=== PATIENT | female | born 1965 | race Caucasian/White ===

== ENCOUNTER 2024-04-13 12:53 | Observation (INO) | payer OTHER, SELFPAY ==
[2024-04-13] VITALS (10 sets, daily range): BP systolic 126–163; BP diastolic 59–94; PULSE 57–84; RESP 12–22; TEMP 36.3–37.2; O2SAT 94–99; BMI 26.2
--- NOTE | 2024-04-13 14:24 | EKG12_ITS ---
Test Reason : EYE PROBLEM Blood Pressure : / mmHG Vent. Rate : 069 BPM Atrial Rate : 069 BPM P-R Int : 208 ms QRS Dur : 082 ms QT Int : 396 ms P-R-T Axes : 022 035 044 degrees QTc Int : 424 ms Normal sinus rhythm Septal infarct (cited on or before 04-DEC-2014) Abnormal ECG Confirmed by FLASH RAMEY, DOROTHEA ([id number]), health editor CHASTITY POSADAS ([id number]) on 04/14/2024 9:56:56 AM Referred By: Confirmed By:DOROTHEA VIDALES MD
--- NOTE | 2024-04-13 14:24 | CT_ITS ---
STUDY: CTA HEAD AND NECK WITH CONTRAST REASON FOR EXAM: Female, 58 years old. Neuro deficit, acute, (R hemianopsia) RADIATION DOSAGE (If Supplied By Facility): CTDIvol = ( 28.00 ) mGy, DLP = ( 1407.82 ) mGycm TECHNIQUE: CT angiography was performed with a multi-detector CT scanner. Data acquisition was obtained from the skull base through the vertex following intravenous administration of IV 100mL Isovue-370. MIP images were reconstructed from the axial data set. Post-processing of the angiographic images was performed, with multiplanar reformation and 3D reconstruction. Individualized dose optimization techniques were used for this CT. COMPARISON: No relevant priors. FINDINGS: Normal bilateral petrous carotid arteries. Normal right cavernous carotid artery with a normal supraclinoid bifurcation. Normal left cavernous carotid artery with a normal supraclinoid bifurcation. Normal right A1 segments of the anterior cerebral artery. Normal left A1 segments of the anterior cerebral artery. Normal intact anterior communicating artery (ACOM). Normal bilateral A2 segments of the anterior cerebral arteries. Normal right M1 and M2 segments of the middle cerebral arteries, with a normal M1 bifurcation. Normal left M1 and M2 segments of the middle cerebral arteries, with a normal M1 bifurcation. Normal right posterior communicating artery (PCOM). Normal left posterior communicating artery (PCOM). Normal bilateral vertebral arteries. Normal basilar artery with a normal basilar bifurcation. The visualized bilateral superior cerebellar (SCA) arteries are normal. Normal bilateral P1, P2 and visualized P3 segments of the posterior cerebral arteries. There is no demonstrated aneurysm of the [place] of [place]. There is evidence of decreased attenuation in the medial aspect of the left occipital lobe a 2.4 subacute infarction. Minimal degree of surrounding edema and mass effect. Findings suggestive of old encephalomalacia in the posterior left parietal lobe. AORTIC ARCH: There is atherosclerotic calcific plaque formation of the aortic arch and great vessels arising from the aortic arch, without a hemodynamically significant stenosis. There is a normal origin of the brachiocephalic, left common carotid, and left subclavian arteries. Atherosclerotic plaque formation at the origin of the left subclavian artery. RIGHT CAROTID ARTERIES: Normal right common carotid artery (CCA). Normal right common carotid bulb. There is mild atherosclerotic plaque formation of the origin of the right internal carotid artery with less than 50% cross sectional diameter stenosis. Normal visualized cervical portion of the right internal carotid artery. Normal origin of the right external carotid artery (ECA). LEFT CAROTID ARTERIES: Normal left common carotid artery (CCA). Normal left common carotid bulb. There is mild atherosclerotic plaque formation of the origin of the left internal carotid artery with less than 50% cross sectional diameter stenosis. Normal visualized cervical portion of the left internal carotid artery. Normal origin of the left external carotid artery (ECA). VERTEBRAL ARTERIES: Normal bilateral vertebral arteries. CT/CTA Head AND Neck W/ Contrast IMPRESSION: Subacute infarction involving the medial left occipital lobe. Minimal plaque formation at the origin of the right and left internal carotid arteries. Electronically Signed: Mik Ayers MD at 15:29 EDT ,
[2024-04-13 14:38] LABS: Absolute Lymphocyte Count 2.82 X10^3/uL (0.83-4.51); Absolute Neutrophil Count 3.9 X10^3/uL (2.0-7.7); Basophil# 0.05 X10^3/uL; Basophil% 0.7 % (0-1); Eosinophil# 0.13 X10^3/uL; Eosinophils% 1.8 % (0-5); Hematocrit 44.8 % (37-47); Lymphocyte # 2.82 X10^3/ul (0.83-4.51); Lymphocyte % 39.4 % (19-41); Mean Corp Hgb Conc 33.5 g/dL (32-36); Mean Corpuscular Hgb 32.1 pg (27.0-32.0); Mean Corpuscular Volume 95.7 fL (81-99); Mean Platelet Vol. 9.9 fl (6.2-12.0); Monocyte# 0.26 X10^3/uL; Monocyte% 3.6 % (0-10); NRBC Flagged by Analyzer 0 % (0-5); Neutrophil # 3.89 X10^3/uL (2.7-7.7); Neutrophil % 54.4 % (47-70); Platelet Count 332 K/mm3 (150-450); RBC Distribution Width CV 13.2 % (11.6-14.6); RBC Distribution Width SD 46.9 fl (35.1-43.9); Red Blood Count 4.68 M/mm3 (4.2-5.4); White Blood Count 7.2 K/mm3 (4.4-11.0)
[2024-04-13 14:45] LABS: Partial Thromboplast Time 24.7 Seconds (24.1-36.2); Prothrombin Time (Protime)PT. 13.6 SECONDS (11.7-14.9)
--- NOTE | 2024-04-13 14:55 | EX.ED.DYSGE1 ---
HPI History of Present Illness Chief Complaint: Vision Prob Informant: patient and family Narrative Narrative: 58-year-old female presenting to the emergency room with a chief complaint of vision change. Patient states that yesterday morning at around 1030 she took a nap woke around 11 and noticed that something was different with her right eye vision. She went back to sleep thinking that when she woke it would be fine. It was not. She states that she cannot see her hand out of the side of her right eye. She reportedly went to [facility] last night had a CT of the head that was negative and was advised to follow-up with ophthalmology. She went saw Dr. Estes today who feels that she has a right hemianopsia. The patient states that she takes [id number] Garlique for her cholesterol. She denies any history of sleep apnea or atrial fibrillation. No prior strokes. She denies any arm or leg symptoms. Family states it seems like she is walking a bit abnormal compared to normal. She denies any speech changes. [facility] Medical History (Updated 04/13/24 @ 16:10 by Stefanie Randall) Heart murmur Home Medications ?Medication ?Instructions ?Recorded ?Last Taken ?Type Probiotic 04/13/24 Unknown History garlic ordorless 04/13/24 Unknown History ginkgo biloba 1XD 04/13/24 Unknown History Allergy/AdvReac Type Severity Reaction Status Date / Time COLD MEDICINE THAT STARTS Allergy Rash Uncoded 12/04/14 13:06 WITH A B Social History Smoking Status: Current every day smoker tobacco type: cigarettes ROS ROS ED Constitutional Constitutional ED: Denies chills, fever(s) or weight loss Eyes Eyes: Reports blurry vision, change in vision and other Details: See history of present illness ; Denies diplopia ENT ENT ED: Denies ear pain, rhinorrhea or sore throat Cardiovascular Cardiovascular: Denies chest pain, orthopnea, palpitations or racing heartbeat Respiratory/Chest Respiratory/Chest: Denies cough, dyspnea or orthopnea Gastrointestinal Gastrointestinal: Denies abdominal pain, diarrhea, nausea or vomiting Genitourinary Genitourinary ED: Denies dysuria, hematuria or urinary frequency Musculoskeletal Musculoskeletal: Denies arthralgias or myalgias Integumentary Denies abscess or rash Neurologic Neurologic: Denies headache(s) or weakness Psychiatric Psychiatric: Denies anxiety, depression, suicidal ideation or suicidal thoughts Endocrine Endocrinology: Denies polydipsia, polyphagia or polyuria Allergic/Immunologic Allergic/Immunologic ED: Denies mouth swelling, tongue swelling or urticaria EXAM Physical Exam Const Vital Signs: 04/13/24 12:56 04/13/24 14:08 04/13/24 14:24 Temperature 97.8 F Temperature Source Temporal Pulse Rate 84 77 63 Respiratory Rate 18 19 H 12 Blood Pressure 131/81 H 126/94 H 157/88 H Blood Pressure Mean 97 104 111 Pulse Ox 97 94 95 Oxygen Delivery Method Room Air Room Air Room Air 04/13/24 14:54 Temperature Temperature Source Pulse Rate 61 Respiratory Rate 14 Blood Pressure 127/83 H Blood Pressure Mean 97 Pulse Ox 94 Oxygen Delivery Method Positive well nourished and well developed General Appearance ED: well developed HEENT Reports normocephalic, head/scalp atraumatic and moist mucous membranes Eyes PERRL and EOMs intact bilaterally Neck no lymphadenopathy, supple and no JVD Resp normal respiratory effort and clear to auscultation bilaterally Cardio regular rate, regular rhythm and no murmurs GI normal to inspection, nondistended, normoactive bowel sounds and non-tender Palpation: soft Back/Spine no CVA tenderness and normal ROM Extremity normal to inspection General Extremety ED: Negative for edema General Extremity: Negative for edema Neuro oriented x3 and CN's II-XII intact bilaterally Sensorium / Orientation: alert Motor Exam: strength 5/5 throughout Psych mental status grossly normal Mood & Affect: Negative for depressed or tearful Skin no rashes or lesions noted and no wounds MDM MDM MDM Narrative Medical decision making narrative: Differential diagnosis includes but not limited to stroke intracranial hemorrhage cardiac dysrhythmia CTA of the head and neck was obtained. This demonstrates recent temporal ischemic event. Basic blood work was obtained her EKG is in normal sinus rhythm with a rate of 69. Spoke with the hospitalist regarding potential for admission. When to bring her in under observational status. History & Record Review Discussion w/independent historian: Patient and Family Lab Data Attestation: I reviewed the patient's lab results. Labs: Laboratory Results - last 24 hr 04/13/24 04/13/24 13:20 14:51 WBC 7.2 RBC 4.68 Hgb 15.0 Hct 44.8 MCV 95.7 MCH 32.1 H MCHC 33.5 RDW Std Deviation 46.9 H RDW Coeff of Xavier 13.2 Plt Count 332 MPV 9.9 Immature Gran % (Auto) 0.100 Neut % (Auto) 54.4 Lymph % (Auto) 39.4 [place] % (Auto) 3.6 Eos % (Auto) 1.8 Baso % (Auto) 0.7 Absolute Neuts (auto) 3.9 Absolute Lymphs (auto) 2.82 Nucleated RBC % 0 PT 13.6 INR 1.0 APTT 24.7 Sodium 138 Potassium 3.7 Chloride 110 H Carbon Dioxide 22.0 Anion Gap 7 BUN 14 Creatinine 0.99 Estim Creat Clear Calc 57.66 Est GFR (MDRD) Af Amer 74 Est GFR (MDRD) Non-Af 62 BUN/Creatinine Ratio 14.2 Glucose 186 H Calcium 9.3 Troponin I High Sens 3 POC Glucose 120 H Radiography Diagnostic Testing: Clinical Impression(s) from Imaging Studies Head/Neck CTA 04/13/24 14:24 IMPRESSION: Subacute infarction involving the medial left occipital lobe. Minimal plaque formation at the origin of the right and left internal carotid arteries. Electronically Signed: Mik Ayers MD at 15:29 EDT , Chest X-Ray 04/13/24 15:05 IMPRESSION: Normal x-ray examination of the chest. Electronically Signed: Mik Ayers MD at 15:23 EDT , EKG Initial EKG: Attestation: I personally reviewed and interpreted this EKG as follows: Comments: Normal sinus rhythm ventricular rate of 69 bpm Discharge Plan Dx/Rx/DC Orders Clinical Impression: Stroke, Right homonymous hemianopsia due to recent cerebral infarction Disposition Disposition: Acute Care Hospital [facility] NIHSS NIHSS 1a. Level of Consciousness: Alert; keenly responsive 1b. LOC Questions: Answers BOTH questions correctly. 1c. LOC Commands: Performs both tasks correctly. 2. Best Gaze: Normal 3. Visual: Complete hemianopia 4. Facial Palsy: Normal symmetrical movements 5a. Left Arm: No drift; arm holds 90 (or 45) degrees for full 10 seconds 5b. Right Arm: No drift; arm holds 90 (or 45) degrees for full 10 seconds 6a. Left Leg: No drift; leg holds 30-degree position for full 5 seconds 6b. Right Leg: No drift; leg holds 30-degree position for full 5 seconds 7. Limb Ataxia: Absent 8. Sensory: Normal; no sensory loss 9. Best Language: No aphasia; normal 10. Dysarthria: Normal 11. Extinction and Inattention: No abnormality Total: 2
[2024-04-13 15:05] LABS: Anion Gap 7 (5-15); BUN 14 mg/dL (7-18); BUN/Creat Ratio 14.2 RATIO (10-20); Calcium,Total 9.3 mg/dL (8.5-10.1); Chloride 110 mmol/L (98-107); Creatinine, Serum 0.99 mg/dL (0.55-1.02); EST Glomerular Filtration Rate 62 mL/min (>60); Est Glom Filt Rate - Afr Amer 74 mL/min (>60); Estimated Creatinine Clearance 57.66 ml/min; Glucose 186 mg/dL (74-106); Potassium 3.7 mmol/L (3.5-5.1); Sodium Level 138 mmol/L (136-145); Troponin-I HS 3 pg/mL (3.0-54.0)
--- NOTE | 2024-04-13 15:05 | RAD_ITS ---
STUDY: X-RAY CHEST REASON FOR EXAM: Female, 58 years old. Neuro deficit, acute, stroke suspected TECHNIQUE: Single AP portable view of the chest. COMPARISON: None. FINDINGS: EKG electrodes are seen. The lungs are clear and expanded. There is no demonstrated pleural abnormality. Normal size heart. Normal mediastinum and trina. Normal visualized pulmonary arteries. Normal visualized aortic arch and descending thoracic aorta. Normal visualized thoracic spine. Normal visualized ribs, clavicles, and shoulders. There is no demonstrated abnormality of the visualized soft tissue structures of the upper abdomen. RAD/Chest 1 View IMPRESSION: Normal x-ray examination of the chest. Electronically Signed: Mik Ayers MD at 15:23 EDT ,
[2024-04-13 15:15] LABS: Bedside Glucose 120 mg/dL (74-106)
--- NOTE | 2024-04-13 16:34 | HP.PCM.HOS_ITS ---
HPI - General General Date of Admission: 04/13/24 Date of Service: 04/13/24 Chief Complaint: CVA HPI Narrative GRAYSON HAYES, is a 58 F with history of tobacco use presented to [facility] ED with right sided hemianopsia since 04/12 at 11 AM. Patient found to have CVA on CT, hospitalist contacted for admission and CVA workup. Patient evaluated at bedside, yesterday morning around 1030 she took a nap and woke up at 11 and noticed something was different with the vision in her right eye, went back to sleep thinking that when she woke up it would be fine but deficits persisted so she went to [facility] last night had CT of the head which was negative and it was advised that she follow-up with ophthalmology. Saw Dr. Estes with Optho today and was told she had right hemianopsia and was sent to the ED. She reports other than not being able to see out of the lateral part of her right eye and has had a headache but she has no numbness, weakness, tingling, no other deficits or complaints. [facility] Medical History Asthma Heart murmur Smoker Home Medications ?Medication ?Instructions ?Recorded ?Last Taken ?Type Probiotic 04/13/24 Unknown History garlic ordorless 04/13/24 Unknown History ginkgo biloba 1XD 04/13/24 Unknown History Allergy/AdvReac Type Severity Reaction Status Date / Time COLD MEDICINE THAT STARTS Allergy Rash Uncoded 12/04/14 13:06 WITH A B Surgical History (Updated 04/13/24 @ 16:12 by Stefanie Randall) History of appendectomy Social History Smoking Status: Current every day smoker tobacco type: cigarettes ROS ROS Narrative General: Denies fever/chills HENT: Slight headache, denies stuffy nose, denies sore throat EYES: Cannot see out of the lateral part of right eye Resp: Denies cough, denies shortness of breath Cardiac: Denies chest pain GI: Denies abdominal pain, denies changes in bowel, denies nausea/vomiting : Denies changes in urination Extremity: Denies swelling MSK: Denies weakness Neuro: Denies any numbness/tingling Heme: Denies any bleeding or bruising Skin: Denies rashes Psychiatric: No complaints voiced Vital Signs Vital Signs Vital Signs: 04/13/24 12:56 04/13/24 14:08 04/13/24 14:24 Temperature 97.8 F Temperature Source Temporal Pulse Rate 84 77 63 Respiratory Rate 18 19 H 12 Blood Pressure 131/81 H 126/94 H 157/88 H Blood Pressure Mean 97 104 111 Pulse Ox 97 94 95 Oxygen Delivery Method Room Air Room Air Room Air 04/13/24 14:54 04/13/24 16:00 04/13/24 16:32 Temperature 97.3 F L Temperature Source Pulse Rate 61 60 57 L Respiratory Rate 14 15 22 H Blood Pressure 127/83 H 129/91 H 129/91 H Blood Pressure Mean 97 103 103 Pulse Ox 94 99 99 Oxygen Delivery Method Weight Weight: 67.041 kg Body Mass Index (BMI) 26.2 Physical Exam Narrative General: Alert, oriented, no apparent distress HEENT: Atraumatic, normocephalic Eyes: Anicteric, normal conjunctiva, extraocular movements intact, patient with nystagmus on far lateral gaze bilaterally, has decreased vision on lateral side of right eye Neck: Supple Respiratory: Clear to auscultation bilaterally, normal respiratory effort Cardiovascular: Regular rate and rhythm GI: Soft, nontender, nondistended Extremities: No edema Musculoskeletal: Strength 5 out of 5 in right upper extremity, 5 out of 5 left upper extremity, 5- out of 5 right lower extremity, 5 out of 5 left lower extremity Neuro: Aside from vision deficits no overt focal neurological deficits, cranial nerves II through XII intact, [id number] without significant difficulty bilaterally Skin: No rashes appreciated Psych: Cooperative Results Lab / Micro Data 04/13/24 13:20 04/13/24 13:20 Labs: Laboratory Results - last 24 hr 04/13/24 13:20: WBC 7.2, RBC 4.68, Hgb 15.0, Hct 44.8, MCV 95.7, MCH 32.1 H, MCHC 33.5, RDW Std Deviation 46.9 H, RDW Coeff of Xavier 13.2, Plt Count 332, MPV 9.9, Immature Gran % (Auto) 0.100, Neut % (Auto) 54.4, Lymph % (Auto) 39.4, [place] % (Auto) 3.6, Eos % (Auto) 1.8, Baso % (Auto) 0.7, Absolute Neuts (auto) 3.9, Absolute Lymphs (auto) 2.82, Nucleated RBC % 0, PT 13.6, INR 1.0, APTT 24.7, Sodium 138, Potassium 3.7, Chloride 110 H, Carbon Dioxide 22.0, Anion Gap 7, BUN 14, Creatinine 0.99, Estim Creat Clear Calc 57.66, Est GFR (MDRD) Af Amer 74, Est GFR (MDRD) Non-Af 62, BUN/Creatinine Ratio 14.2, Glucose 186 H, Calcium 9.3, Troponin I High Sens 3 04/13/24 14:51: POC Glucose 120 H Imaging Radiology Impression Head/Neck CTA 04/13/24 14:24 IMPRESSION: Subacute infarction involving the medial left occipital lobe. Minimal plaque formation at the origin of the right and left internal carotid arteries. Electronically Signed: Mik Ayers MD at 15:29 EDT , Chest X-Ray 04/13/24 15:05 IMPRESSION: Normal x-ray examination of the chest. Electronically Signed: Mik Ayers MD at 15:23 EDT , Assessment & Plan Assessment/Plan (1) CVA (cerebral vascular accident): PLAN: Plan # Right sided hemianopsia -Admit to tele -EKG NSR -CT head w/ subacute infarct involving the medial left occipital lobe with minimal plaque formation and origin of right and left internal carotid arteries -MRI ordered -NIH q4hr -asa, statin -Echo w/ bubble study -PT/OT/Speech eval -Teleneuro consult ordered #Tobacco use -Advise cessation -Nicotine replacement available if desired #DVT ppx: Lovenox subcu Ashly Richards MD Charges/Coding Visit Charges Inpatient E&M: 35161 Init Hosp L1
--- NOTE | 2024-04-13 16:42 | ECHOD_ITS ---
Reason For Study: TIA/CVA Procedure This was a 2D Doppler, Color Flow transthoracic echocardiogram. Exam performed portable in patient room. Left Ventricle Normal LV size. The estimated ejection fraction is 65-70 %. No evidence for diastolic dysfunction. No regional wall motion abnormalities noted. Right Ventricle Normal RV size. Normal systolic function. Atria Normal left atrium. Normal right atrium. Bubble contrast study is positive for PFO. Mitral Valve Mild diffuse mitral valve calcification. Tricuspid Valve Normal tricuspid valve. Trivial tricuspid valve insufficiency. Unable to estimate RV systolic pressure due to insufficient tricuspid regurgitant envelope. Aortic Valve Trisinus/trileaflet aortic valve. Mild aortic stenosis. Peak aortic valve gradient 19 mmHg. Mean aortic valve gradient 9 mmHg. Pulmonic Valve Normal pulmonic valve. Great Vessels Normal aortic root. Pericardium/Pleural No pericardial effusion. Medication Performed a rapid injection of agitated mix of 9 cc saline and 1cc air to assess for atrial septal defect. MMode/2D Measurements & Calculations LVIDd: 3.9 cm IVSd: 1.0 cm Ao root diam: 2.9 cm LVIDs: 2.6 cm LVPWd: 1.0 cm FS: 33.7 % LAV(MOD-bp): 38.3 ml LVAd ap4: 23.7 cm2 LVAd ap2: 22.5 cm2 LAV(MOD-bp) Indexed: 22.6 ml/m2 LVLd ap4: 7.9 cm LVLd ap2: 8.3 cm LAV(MOD-sp2): 37.2 ml EDV(MOD-sp4): 57.8 ml EDV(MOD-sp2): 52.6 ml LAV(MOD-sp4): 39.2 ml EDV(sp4-el): 60.3 ml EDV(sp2-el): 51.5 ml LVAs ap4: 11.2 cm2 LVAs ap2: 11.2 cm2 LVLs ap4: 6.6 cm LVLs ap2: 6.5 cm ESV(MOD-sp4): 16.5 ml ESV(MOD-sp2): 17.2 ml ESV(sp4-el): 16.1 ml ESV(sp2-el): 16.3 ml EF(MOD-sp4): 71.5 % EF(MOD-sp2): 67.2 % EF(sp4-el): 73.3 % SV(MOD-sp4): 41.3 ml SV(MOD-sp2): 35.3 ml SV(sp4-el): 44.2 ml LA A4 area: 15.0 cm2 LA dimension(2D): 2.7 cm RA A4 area: 11.5 cm2 TAPSE: 2.3 cm Time Measurements MV dec time: 0.23 sec Doppler Measurements & Calculations MV E max chapin: 91.0 cm/sec Lat Peak E' Chapin: 11.7 cm/sec Med Peak E' Chapin: 7.6 cm/sec MV A max chapin: 109.1 cm/sec E/E' lat: 7.8 E/E' med: 11.9 MV E/A: 0.83 MV V2 max: 106.6 cm/sec MV P1/2t max chapin: 99.6 cm/sec Ao V2 max: 215.4 cm/sec MV max P.5 mmHg MV P1/2t: 65.5 msec Ao max P.6 mmHg MV V2 mean: 59.2 cm/sec Ao V2 mean: 137.2 cm/sec MV mean P.6 mmHg MV dec slope: 445.2 cm/sec2 Ao mean P.7 mmHg MV V2 VTI: 34.8 cm MVA(P1/2t): 3.4 cm2 Ao V2 VTI: 39.9 cm AV (velocity ratio): 0.59 LV V1 max: 114.0 cm/sec PA V2 max: 177.2 cm/sec LV V1 max P.2 mmHg PA V2 mean: 116.0 cm/sec LV V1 mean P.9 mmHg LV V1 mean: 79.8 cm/sec LV V1 VTI: 23.4 cm ECHO/Echo Complete Interpretation Summary The estimated ejection fraction is 65-70 %. Mild diffuse mitral valve calcification. Mild aortic stenosis. Bubble contrast study is positive for PFO. Ordering Physician: Ashly Richards Referring Physician: JOHAN PCP Performed By: Genoveva Nice, DUDLEY, RVT
--- NOTE | 2024-04-13 16:42 | MRI_ITS ---
STUDY: MRI BRAIN WITHOUT CONTRAST REASON FOR EXAM: Female, 58 years old. CVA, RT EYE VISUAL CHANGES TECHNIQUE: Standardized multiplanar fat and water weighted pulse sequences were obtained. MRI examination brain fusion protocol including multiplanar multiecho noncontrast imaging. Contrast: No contrast administered COMPARISON: CT/CTA examination of 04/13/2024 HEMISPHERES, CEREBELLUM AND BRAINSTEM: 1. The cerebral parenchyma, ventricular system and gyral pattern abnormal configuration. There however is significant edema involving the medial ankle of the LEFT occipital lobe which appears to include both the superior and inferior vena cava calcarine sulcus including the cutaneous and lingula. No evidence of petechial transformation, however significant fluid restriction and matched ADC abnormality consistent with acute infarct. Additional small focal area of ischemic change in the posterior thalamus on the LEFT. 2. Remaining hemispheric parenchyma has normal configuration, and normal ruth-white differentiation. No significant white matter changes noted. 3. The cerebellum, brainstem, basilar and suprasellar cisterns have normal appearance. No Chiari malformation. PITUITARY: Infundibulum and pituitary have normal configuration. Midline structures appear normal. CSF SPACES: Appropriate for age. No hydrocephalus. Basal cisterns are patent. VESSELS: 1. There are normal flow voids noted in the great vessels at the skull base ORBITS AND PARANASAL SINUSES: 1. Both globes, extraocular muscles, optic nerves and retrobulbar fat appear unremarkable. 2. Paranasal sinuses are clear. BONY ELEMENTS: Bony elements of the cranial vault, facial skeleton and skull base have normal appearance. SCALP AND SOFT TISSUES: Normal appearance of the soft tissues of the scalp and the visualized face OTHER: None MRI/Brain without Contrast IMPRESSION: 1. Acute LEFT HANGER infarct with edema and fluid restriction involving the medial aspect of the LEFT occipital lobe including both the superior and inferior vena cava calcarine sulcus. Findings may contribute to a right-sided homonymous hemianopsia. Additional focal area of acute infarct in the posterior LEFT thalamus. 2. No evidence of petechial transformation or hemorrhage. 3. Remaining hemispheric parenchyma, thalamus, brainstem and cerebellum have normal appearance. Electronically Signed: Percy Perez MD at 18:40 EDT ,
[2024-04-13] MEDS: Atorvastatin Calcium 80 MG Tablet PO (22:14)
[2024-04-13] MEDS: Acetaminophen 325 MG Tablet 650 MG PO (22:14)
[2024-04-13] MEDS: Morphine 2 MG/ML Syringe IV (23:06)
[2024-04-14 00:28] VITALS: BMI 26.2
[2024-04-14 02:00] VITALS: BP 109/74; PULSE 76; RESP 16; TEMP 36.6; O2SAT 92
[2024-04-14 06:00] VITALS: BP 125/68; PULSE 67; RESP 16; TEMP 36.8; O2SAT 91
[2024-04-14 06:29] LABS: Absolute Lymphocyte Count 3.84 X10^3/uL (0.83-4.51); Absolute Neutrophil Count 6.2 X10^3/uL (2.0-7.7); Basophil# 0.07 X10^3/uL; Basophil% 0.6 % (0-1); Eosinophil# 0.26 X10^3/uL; Eosinophils% 2.4 % (0-5); Hematocrit 43.6 % (37-47); Hemoglobin 14.7 g/dL (12.0-15.0); Lymphocyte # 3.84 X10^3/ul (0.83-4.51); Mean Corp Hgb Conc 33.7 g/dL (32-36); Mean Corpuscular Hgb 32.4 pg (27.0-32.0); Mean Platelet Vol. 9.5 fl (6.2-12.0); Monocyte% 5.5 % (0-10); NRBC Flagged by Analyzer 0 % (0-5); Neutrophil # 6.19 X10^3/uL (2.7-7.7); Neutrophil % 56.3 % (47-70); Platelet Count 306 K/mm3 (150-450); RBC Distribution Width CV 13.2 % (11.6-14.6); RBC Distribution Width SD 46.8 fl (35.1-43.9); Red Blood Count 4.54 M/mm3 (4.2-5.4)
[2024-04-14] MEDS: Acetaminophen 325 MG Tablet 650 MG PO (06:34)
[2024-04-14 06:58] LABS: Anion Gap 6 (5-15); BUN 16 mg/dL (7-18); BUN/Creat Ratio 19.6 RATIO (10-20); Calcium,Total 8.6 mg/dL (8.5-10.1); Chloride 110 mmol/L (98-107); Cholesterol 275 mg/dL (200); Creatinine, Serum 0.82 mg/dL (0.55-1.02); EST Glomerular Filtration Rate 77 mL/min (>60); Est Glom Filt Rate - Afr Amer 93 mL/min (>60); Estimated Creatinine Clearance 69.59 ml/min; Glucose 102 mg/dL (74-106); High Density Lipoprotein 40 mg/dL; Potassium 4.1 mmol/L (3.5-5.1); Sodium Level 138 mmol/L (136-145); Triglycerides 171 mg/dL; Very Low Density Lipoprotein 34 mg/dL (5-40)
[2024-04-14 08:55] VITALS: O2SAT 95
[2024-04-14 09:01] LABS: Hemoglobin A1c 5.7 % (3.8-5.6)
[2024-04-14 09:15] VITALS: BP 123/73; PULSE 65; RESP 18; TEMP 37; O2SAT 94
[2024-04-14] MEDS: Aspirin 81 MG TAB.CHEW PO (09:16)
[2024-04-14] MEDS: Enoxaparin 40 MG/0.4 ML Syringe SC (09:16)
[2024-04-14] MEDS: Clopidogrel Bisulfate 75 MG Tablet PO (09:17)
[2024-04-14 13:15] VITALS: BP 119/56; PULSE 67; RESP 18; TEMP 36.9; O2SAT 96
--- NOTE | 2024-04-14 13:16 | CASEMGMT ---
Social Work PHQ9 depression screen completed on this date as pt diagnosed with stroke. Pt score of 6 indicating mild depression. During discussion pt denies overall feeling depressed and does not take medications or see a counselor. SW educated pt to relation between stroke and depression and provided pt with list of area counselors and encouraged pt to talk to PCP if feelings worsened. Pt accepting of list and denies need for appointment at this time. ARRON Orosco
--- NOTE | 2024-04-14 14:52 | STROKE.CONS ---
Assessment and Plan: Stroke Assessment/Plan GRAYSON HAYES is a 58 F with a history of HLD who presents for evaluation of R vision loss. Was at ophtalmology and they told her to come in. CTH confirmed Left Ociipitoparietal infarct. Neurological examination shows NIH 2, ataxia and mild visual field cut. Neuroimaging shows L GREENS CUTTER infarct. Etiology Cryptogenic. - Anti-platelet medication: Plavix 75 mg daily. - Occupational/ Physical therapy consults - DVT prophylaxis with SCDs and heparin SQ - Vascular risk factor modification. The following are the recommended guidelines: LDL Goal < 70 Smoking Cessation A1C 5.7 LDL 200 - would start Lipitor 80 mg Follow up TTE results. If wnl - then would consider Event monitor on discharge with eventful loop recorder for cryptogenic stroke. -- Would stop Supplements such as Garlic and Ginkgo ferry terminal agent blood pressure control should achieve <130/80 mmHg. 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 Weight Management: Goal for BMI is 18.5 -24.9 kg/m2 Alcohol: No more than 2 drinks/day for men or 1 drink/day for non- women - Promote lifestyle modification: weight control, physical activity, moderation of alcohol intake, moderate sodium intake. Followup with PCP in 1-2 weeks, and in Neurology clinic in 6-12 weeks HPI Consult Data Date of Consult: 04/14/24 HPI Narrative HPI Narrative: GRAYSON HAYES, is a 58 F who presents with vision vhanges. [facility] Medical History (Updated 04/13/24 @ 16:[address] Ashly Richards MD) Smoker Asthma Heart murmur Home Medications ?Medication ?Instructions ?Recorded ?Last Taken ?Type Probiotic 04/13/24 04/12/24 History garlic ordorless 04/13/24 04/12/24 History ginkgo biloba 1XD 04/13/24 04/12/24 History Allergy/AdvReac Type Severity Reaction Status Date / Time COLD MEDICINE THAT STARTS Allergy Rash Uncoded 12/04/14 13:06 WITH A B Surgical History (Updated 04/13/24 @ 16:12 by Stefanie Randall) History of appendectomy Social History Smoking Status: Current every day smoker tobacco type: cigarettes Vital Signs Vital Signs Vital Signs: 04/13/24 14:54 04/13/24 16:00 04/13/24 16:32 Temperature 97.3 F L Temperature Source Pulse Rate 61 60 57 L Pulse Strength Respiratory Rate 14 15 22 H Respiratory Effort Blood Pressure 127/83 H 129/91 H 129/91 H Blood Pressure Mean 97 103 103 Blood Pressure Source Blood Pressure Position Blood Pressure Location Pulse Ox 94 99 99 Oxygen Delivery Method 04/13/24 17:39 04/13/24 19:50 04/13/24 21:15 Temperature 99.0 F Temperature Source Oral Pulse Rate 65 Pulse Strength Respiratory Rate 16 16 Respiratory Effort Normal Blood Pressure 126/81 H Blood Pressure Mean 96 Blood Pressure Source Monitor Blood Pressure Position Sitting Blood Pressure Location Left Arm Pulse Ox 99 97 94 Oxygen Delivery Method Room Air Room Air Room Air 04/13/24 22:00 04/13/24 22:00 04/14/24 02:00 Temperature 97.8 F 97.8 F Temperature Source Oral Oral Pulse Rate 68 76 Pulse Strength Normal (2+) Respiratory Rate 16 16 Respiratory Effort Blood Pressure 163/59 H 109/74 Blood Pressure Mean 93 85 Blood Pressure Source Monitor Monitor Blood Pressure Position Supine Supine Blood Pressure Location Left Arm Left Arm Pulse Ox 97 92 Oxygen Delivery Method Room Air Room Air 04/14/24 06:00 04/14/24 08:21 04/14/24 08:55 Temperature 98.3 F Temperature Source Oral Pulse Rate 67 Pulse Strength Respiratory Rate 16 Respiratory Effort Blood Pressure 125/68 H Blood Pressure Mean 87 Blood Pressure Source Monitor Blood Pressure Position Semi-Fowlers Blood Pressure Location Left Arm Pulse Ox 91 95 Oxygen Delivery Method Room Air Room Air Room Air 04/14/24 09:15 04/14/24 13:15 Temperature 98.6 F 98.5 F Temperature Source Oral Oral Pulse Rate 65 67 Pulse Strength Respiratory Rate 18 18 Respiratory Effort Blood Pressure 123/73 H 119/56 L Blood Pressure Mean 89 77 Blood Pressure Source Monitor Monitor Blood Pressure Position Semi-Fowlers Sitting Blood Pressure Location Left Arm Left Arm Pulse Ox 94 96 Oxygen Delivery Method Room Air Room Air Weight Weight: 67 kg Body Mass Index (BMI) 26.2 EEG Results Procedure Details EEG Procedure Details: GRAYSON HAYES is a 58 year old F with a past medical history of , who presents for evaluation of Electroencephalogram on DATE at TIME NIHSS NIHSS Nursing Documentation NIHSS Nursing Documentation: NIHSS: Ischemic Stroke/TIA Start: 04/13/24 17:00 Text: For PCU Patients: NIH and Neuro Check every 4 Status: Active hours, PRN and with change in RN caregiver. Freq: [id number] Protocol: Activity Type Activity Date Activity User E-sign Co-sign Detail Recorded Client Recorded Date Recorded By Document 04/14/24 13:15 AMG [id number] 04/14/24 14:22 AMG 04/14/24 13:15 NIH Stroke Scale [NIHSS] A score of 0 is normal or asymptomatic . Total possible score is 42. Inpatient: RN or Physician to activate a stroke alert for onset of new stroke symptoms or with NIHSS increase >/= 3 points. Following change in neurological status, NIHSS will be performed per physician order or more frequently PRN. -1a. Level of Consciousness Alert; keenly responsive -1b. LOC Questions Answers BOTH questions correctly. -1c. LOC Commands Performs both tasks correctly . -2. Best Gaze Normal -3. Visual Partial hemianopia -4. Facial Palsy Normal symmetrical movements -5a. Left Arm No drift; arm holds 90 (or 45 ) degrees for full 10 seconds -5b. Right Arm No drift; arm holds 90 (or 45 ) degrees for full 10 seconds -6a. Left Leg No drift; leg holds 30-degree position for full 5 seconds -6b. Right Leg No drift; leg holds 30-degree position for full 5 seconds -7. Limb Ataxia Absent -8. Sensory Mild-to- moderate sensory loss; -9. Best Language No aphasia; normal -10. Dysarthria Normal -11. Extinction and Inattention No abnormality -Total 2 Query Text:A score of 0 is normal or asymptomatic. Total possible score is 42 . ED: Notify Physician for NIHSS increase by > / = 3 points. Inpatient: RN or Physician to activate a stroke alert for NIHSS increase of > / = 3 points. Lab / Micro Data 04/14/24 05:56 04/14/24 05:56 Labs: Laboratory Results - last 24 hr 04/13/24 13:20: Sodium 138, Potassium 3.7, Chloride 110 H, Carbon Dioxide 22.0, Anion Gap 7, BUN 14, Creatinine 0.99, Estim Creat Clear Calc 57.66, Est GFR (MDRD) Af Amer 74, Est GFR (MDRD) Non-Af 62, BUN/Creatinine Ratio 14.2, Glucose 186 H, Calcium 9.3, Troponin I High Sens 3 04/13/24 14:51: POC Glucose 120 H 04/14/24 05:56: WBC 11.0, RBC 4.54, Hgb 14.7, Hct 43.6, MCV 96.0, MCH 32.4 H, MCHC 33.7, RDW Std Deviation 46.8 H, RDW Coeff of Xavier 13.2, Plt Count 306, MPV 9.5, Immature Gran % (Auto) 0.200, Neut % (Auto) 56.3, Lymph % (Auto) 35.0, Vance % (Auto) 5.5, Eos % (Auto) 2.4, Baso % (Auto) 0.6, Absolute Neuts (auto) 6.2, Absolute Lymphs (auto) 3.84, Nucleated RBC % 0, Sodium 138, Potassium 4.1, Chloride 110 H, Carbon Dioxide 22.0, Anion Gap 6, BUN 16, Creatinine 0.82, Estim Creat Clear Calc 69.59, Est GFR (MDRD) Af Amer 93, Est GFR (MDRD) Non-Af 77, BUN/Creatinine Ratio 19.6, Glucose 102, Hemoglobin A1c 5.7 H, Calcium 8.6, Triglycerides 171, Cholesterol 275 H, LDL Cholesterol 201 H, VLDL Cholesterol 34, HDL Cholesterol 40, TSH 2.180 Imaging Radiology Impression Head/Neck CTA 04/13/24 14:24 IMPRESSION: Subacute infarction involving the medial left occipital lobe. Minimal plaque formation at the origin of the right and left internal carotid arteries. Electronically Signed: Mik Ayers MD at 15:29 EDT , Chest X-Ray 04/13/24 15:05 IMPRESSION: Normal x-ray examination of the chest. Electronically Signed: Mik Ayers MD at 15:23 EDT , Brain MRI 04/13/24 16:42 IMPRESSION: 1. Acute LEFT GREENS CUTTER infarct with edema and fluid restriction involving the medial aspect of the LEFT occipital lobe including both the superior and inferior vena cava calcarine sulcus. Findings may contribute to a right-sided homonymous hemianopsia. Additional focal area of acute infarct in the posterior LEFT thalamus. 2. No evidence of petechial transformation or hemorrhage. 3. Remaining hemispheric parenchyma, thalamus, brainstem and cerebellum have normal appearance. Electronically Signed: Percy Perez MD at 18:40 EDT , Active Medications Active Medications Active Medications: Current Medications Generic Name Dose Route Start Last Admin Trade Name Freq PRN Reason Stop Dose Admin Acetaminophen 650 mg 04/13/24 17:00 04/14/24 06:34 Acetaminophen 325 Mg Tablet PO 650 mg Q6H PRN PRN Administration Pain 1-10 Or Fever >100.7 Albuterol Sulfate 2.5 mg 04/13/24 17:00 Albuterol 2.5 Mg/3 Ml Vial.Neb. INHALATION Q2H PRN PRN SOB &/OR WHEEZING Aspirin 81 mg 04/14/24 08:00 04/14/24 09:16 Aspirin 81 Mg Tab.Chew PO 81 mg BREAKFAST BYRON Administration Atorvastatin Calcium 80 mg 04/13/24 22:00 04/13/24 22:14 Atorvastatin Calcium 80 Mg Tablet PO 80 mg QHS BYRON Administration Clopidogrel Bisulfate 75 mg 04/14/24 10:00 04/14/24 09:17 Clopidogrel Bisulfate 75 Mg Tablet PO 75 mg DAILY BYRON Administration Enoxaparin Sodium 40 mg 04/14/24 10:00 04/14/24 09:16 Enoxaparin 40 Mg/0.4 Ml Syringe SC 40 mg DAILY BYRON Administration Hydralazine HCl 5 mg 04/13/24 17:00 Hydralazine 20 Mg/Ml Vial IV 04/14/24 17:00 Q30M PRN maintain BP parameters with HR <60 Sodium Chloride 500 mls @ 15 mls/hr 04/13/24 17:10 IV .[id number] PRN Saline Flush Labetalol HCl 10 - 20 mg 04/13/24 17:00 Labetalol (Prefilled) 20 Mg/4 Ml Vial IV 04/14/24 17:00 Q10M PRN PRN maintain BP parameters with HR >/=60 Lorazepam 0.5 mg 04/13/24 17:00 Lorazepam 0.5 Mg Tablet PO X1 PRN Anxiety with MRI Melatonin 3 mg 04/13/24 17:00 Melatonin 3 Mg Tablet PO QHS PRN PRN INSOMNIA Ondansetron HCl 4 mg 04/13/24 17:00 Ondansetron 4 Mg/2 Ml Vial IV Q8H PRN PRN NAUSEA/VOMITING Oxycodone HCl 2.5 mg 04/13/24 17:00 Oxycodone 5 Mg Tablet PO Q4H PRN PRN Pain Score 4-10 Senna/Docusate Sodium 2 tablet 04/13/24 17:00 Senna/Docusate Sodium 1 Tablet PO BID PRN PRN Constipation Sodium Chloride 10 - 40 ml 04/13/24 17:10 0.9% Saline Lock 10 Ml Syringe IV UD PRN SALINE FLUSH
--- NOTE | 2024-04-14 15:35 | CHAPLAIN ---
Type of Pastoral Visit _x__ Initial Visit ___ Follow-up Visit ___ On-call Visit ___ General Patient Visit ___ Spiritual Assessment ___ Family Conference ___ Bereavement ___ Rapid Response ___ Code Blue ___ Other (describe below) Pastoral Care Referral From _x__ Patient ___ Family ___ Nurse ___ Physician ___ Modeling Teacher ___ Dairy Clerk ___ Other (describe below) Sacrament/Intervention _x__ Active listening ___ Anointing ___ Oriental Orthodox ___ Bereavement ___ Communion ___ Ignacia exploration ___ ___ Life review _x__ Prayer ___ Reconciliation ___ Sacrament of Sick _x__ Supportive presence ___ Wedding ___ Other (describe below) Pastoral Comments patient is with her spouse and a friend in the room; pt speaks of her vision issues and just wanting to get better from her stroke; spouse shows support and they laugh together; pt says that she would just appreciate a prayer; time given to explore her feelings and needs
--- NOTE | 2024-04-14 16:41 | DS.PCM_ITS ---
Providers Date of Admission: 04/13/24 Date of Discharge: 04/14/24 Primary Care Physician: Jenae Primary Care Phys Consultations 04/13/24 17:00 Consult: Tele-Neurology Routine Consulting Provider: [facility] Reason for Consult: Ischemic Stroke EMERGENT Consult: No MD Notified: Yes Date Notified: 04/13/24 Time Notified: 17:32 Method of Notification: Answering Service Nursing Unit Staff Notify [facility] of Tele-Neurology Consult: Yes Reason For Visit: STROKE HEMIANOPSIA Diagnosis Discharge Diagnosis (1) CVA (cerebral vascular accident): Status: Acute Code(s): I63.9 - Cerebral infarction, unspecified Medications at Discharge Home Medications Probiotic 04/13/24 garlic ordorless 04/13/24 ginkgo biloba 1XD 04/13/24 aspirin 81 mg chewable tablet 81 mg PO BREAKFAST #0 tabs 04/14/24 atorvastatin 80 mg tablet 80 mg PO QHS #30 tabs 04/14/24 clopidogrel 75 mg tablet 75 mg PO DAILY #21 tabs 04/14/24 Hospital Course Procedures 2-D Echocardiogram, EKG and - (CTA head and neck/MRI brain/CT brain/chest x-ray) Summary of Care Provided Minutes Spent on Discharge: 39 Hospital Course: Patient is a 58-year-old female who presented to the emergency department at [facility] on 04/13/2024 with a chief complaint of visual changes out of her right eye. Patient reported that she woke up the day prior to presentation at around 11 AM after she fell asleep at about 10:30 AM and noticed something was different in her right eye. She went back to sleep thinking that when she woke up it would be fine however it was still not normal. She reported she went to the [facility] at that time and a CT of the brain was performed and found to be negative and advised to follow-up with ophthalmology. She went to see Dr. Estes at ophthalmology on the day of presentation and he was concerned that she had right hemianopsia so she was referred to the emergency department. She takes [id number] Garlique for her cholesterol but does not know recent cholesterol levels. Family reported that she was walking a bit abnormally compared to her baseline which was likely related to her visual changes. She had no other neurological changes. CTA of the head and neck showed subacute infarction of the medial left occipital lobe and minimal plaque formation at the origin of the right and left internal carotid arteries. Chest x-ray is unremarkable. MRI of the brain showed a left acute DEAN OF ADMISSIONS infarct with edema and fluid restriction involving the medial aspect of the left occipital lobe as well as an additional foci of acute infarct in the posterior left thalamus. She was started on aspirin and Plavix was added as well as high-dose intensity statin. Her blood pressure was well-controlled. She does abuse tobacco and tobacco cessation was highly recommended. She was seen by neurology who recommended continuation of care above with dual antiplatelet therapy for 21 days and high intensity of statin as her cholesterol was markedly uncontrolled with an LDL of 201. Hemoglobin A1c was 5.7. Echocardiogram was performed but not yet read. This does not preclude discharge and when she follows up with neurology as recommended the results should be available at that time to make further recommendations. She did not require any ongoing physical or occupational therapy at the time of discharge. Event monitor was prescribed at the time of discharge as this is a cryptogenic stroke. I have advised her to follow-up with ophthalmology as an outpatient to make recommendations to assist with her vision. She is to be off work at least until next Wednesday with no driving until cleared by a physician to drive. She does not have a primary care physician at this point. A list of primary care physicians was given to her prior to discharge. Patient was discharged home in stable condition on 04/14/2024. She was advised to call the neurology office on Wednesday to set up an outpatient appointment to be seen within the next 2 weeks and to find a primary care physician and schedule appointment as soon as possible. She is also to follow-up with ophthalmology in the next 2 weeks. Discharge diagnoses: Acute stroke Right sided hemianopsia Mild carotid artery stenosis Hyperlipidemia Tobacco abuse Physical Exam Const alert, oriented x3, no apparent distress, average body habitus, no limitations and well nourished Constitutional Narrative: Middle-aged, white female, appears comfortable, nontoxic, family at bedside General Appearance: cooperative, comfortable, well kempt and well developed Exam Limitations: other limitations Nutritional Appearance: overweight HEENT normocephalic, head/scalp atraumatic, hearing grossly normal bilaterally and moist oral mucous membranes HEENT Narrative: Mallampati 3, no thrush Eyes PERRL and conjunctivae normal Eyes Narrative: No scleral icterus Neck no lymphadenopathy and supple Neck Narrative: Trachea midline, no thyroid enlargement Resp normal respiratory effort, no retractions, no use of accessory muscles and clear to auscultation bilaterally Resp Narrative: Diminished diffusely but clear Auscultation: Negative for rales, rhonchi or wheezes Cardio regular rate, regular rhythm, S1 normal heart sound, S2 normal heart sound, no murmurs, no rub, no gallops and no clicks GI normal to inspection, nondistended, normoactive bowel sounds, soft to palpation and non-tender Extremity no clubbing, cyanosis or edema Extremity Narrative: Pedal and radial pulses are 2+ Skin skin turgor normal, no jaundice, no petechiae and no mottling Neuro oriented x3 and moves all extremities Neuro Narrative: Partial hemianopsia but no other motor deficits, all other cranial nerves are within normal limits, patient does have mild speech impediment which is reportedly her baseline Speech: Negative for speech normal Psych affect normal Psych Narrative: Very pleasant, slightly anxious Weight / BMI Weight Weight: 67 kg Body Mass Index (BMI) 26.2 ABG / Lab / Microbiology Data 04/14/24 05:56 04/14/24 05:56 Laboratory: Laboratory Results - last 24 hr 04/14/24 05:56: WBC 11.0, RBC 4.54, Hgb 14.7, Hct 43.6, MCV 96.0, MCH 32.4 H, MCHC 33.7, RDW Std Deviation 46.8 H, RDW Coeff of Xavier 13.2, Plt Count 306, MPV 9.5, Immature Gran % (Auto) 0.200, Neut % (Auto) 56.3, Lymph % (Auto) 35.0, Dawes % (Auto) 5.5, Eos % (Auto) 2.4, Baso % (Auto) 0.6, Absolute Neuts (auto) 6.2, Absolute Lymphs (auto) 3.84, Nucleated RBC % 0, Sodium 138, Potassium 4.1, C hloride 110 H, Carbon Dioxide 22.0, Anion Gap 6, BUN 16, Creatinine 0.82, Estim Creat Clear Calc 69.59, Est GFR (MDRD) Af Amer 93, Est GFR (MDRD) Non-Af 77, BUN/Creatinine Ratio 19.6, Glucose 102, Hemoglobin A1c 5.7 H, Calcium 8.6, Triglycerides 171, Cholesterol 275 H, LDL Cholesterol 201 H, VLDL Cholesterol 34, HDL Cholesterol 40, TSH 2.180 Radiography Diagnostic Testing: Radiology Impression Brain MRI 04/13/24 16:42 IMPRESSION: 1. Acute LEFT DEAN OF ADMISSIONS infarct with edema and fluid restriction involving the medial aspect of the LEFT occipital lobe including both the superior and inferior vena cava calcarine sulcus. Findings may contribute to a right-sided homonymous hemianopsia. Additional focal area of acute infarct in the posterior LEFT thalamus. 2. No evidence of petechial transformation or hemorrhage. 3. Remaining hemispheric parenchyma, thalamus, brainstem and cerebellum have normal appearance. Electronically Signed: Percy Perez MD at 18:40 EDT , D/C Instructions Discharge Diet: Low fat / Low cholesterol Discharge Activity: Return to Normal Activity and [address] (Until cleared by a physician) Return to work on: 04/21/24 Meaningful Use Info Meaningful Use Meaningful Use Diagnoses (Choose all that apply): Ischemic CVA CVA Therapy Assessed for PT,OT and/or ST?: Yes Ischemic Stroke Antithrombotic order at d/c?: Yes Dx of Atrial fib/flutter?: No Anticoagulant at discharge?: No Reason anticoagulant not ordered: Treatment not Indicated Statin Dosing Therapy Reference: STATIN DOSE THERAPY REFERENCE: * Patients > 75 years receive moderate or high dose statin therapy. * Patients 75 years or YOUNGER should receive HIGH intensity statin dose unless contraindicated. You will be required to document reason for non-treatment if statin daily dose does not meet guidelines. HIGH DOSE STATIN THERAPY DAILY Atorvastatin > than or = to 40 mg Rosuvastatin > than or = to 20 mg Amlodipine + Atorvastatin > than or = to 2.5/40 mg Ezetimibe + Simvastatin 10/80 mg Simvastatin 80mg Statins at discharge?: Yes If patient is 75 or younger, pt will be discharged on HIGH intensity statin.: Y es Primary Dx Acute Ischemic CVA?: Yes IV thrombolytic ordered during stay?: No Reason IV thrombolytic not ordered: Treatment not Indicated Discharge Plan Admission Admit Date/Time: 04/13/24 16:34 Primary Reason for Your Visit: Right sided hemianopsia Attending Provider: Nancie Torres Primary Care Provider: Care Physician,No Primary Consulting Providers: Eric Meier; Robyn Huynh; Catherine Soto; Maria Fernanda Renee; Charissa Stanley; Gamal Mann; Britni Katz; Malik Talavera; Moe Walden; Peter Britton; Isabel Valencia; Beka Yadav; Bhakti Landeros; Art Arellano; Manuela Wiggins; Mika Sullivan; Letha Moya; Delbert Pink; Mary Torres; Topher Gomez; Ashly Richards Instructions Forms: Work Excuse Additional Instructions / Restrictions: 1. Please stop smoking 2. Please call neurology office below on Wednesday to set up an appointment to be seen within the next 2 weeks. 3. It is very important for you to get a primary care doctor Discharge Orders/Prescriptions Prescriptions: New aspirin 81 mg Tablet,Chewable 81 mg PO BREAKFAST Qty: 0 0RF atorvastatin 80 mg Tablet 80 mg PO QHS Qty: 30 1RF clopidogrel 75 mg Tablet 75 mg PO DAILY Qty: 21 0RF Continued Probiotic garlic ordorless ginkgo biloba 1XD Other Ambulatory Orders: 30 Day Event Recorder Preventi (Urgent) Timeframe: 1 Day Facility: [facility] - Location: Cardiovascular Services Ordered By: Dr. Nancie Torres Referrals / Follow Up: Jaisno Sheehan MD [Non-Staff -Ordering Privileges] - Within 2 Weeks (Call on Wednesday to schedule appointment) Care Physician,No Primary [Primary Care Provider] - Alfredito Estes MD [Med Staff - Active Staff] - Within 1 Month Disposition Disposition (needs filled in before D/C Order can be placed): Home, Self Care Charges/Coding Visit Charges Inpatient E&M: 81564 Disch Hosp >30min
[2024-04-14 17:13] VITALS: BP 135/77; PULSE 67; RESP 18; TEMP 36.8; O2SAT 95
== END 2024-04-14 17:27 | disposition home or self-care (01) ==
LOC: ED 16:10 → PCU 16:52
PROVIDERS: Admitting Provider Internal Medicine; Emergency Provider Emergency Medicine; Visit Provider Internal Medicine
DX: I63.9 Cerebral infarction, unspecified (principal); H53.461 Homonymous bilateral field defects, right side; E78.5 Hyperlipidemia, unspecified; F17.210 Nicotine dependence, cigarettes, uncomplicated; J45.909 Unspecified asthma, uncomplicated; R01.1 Cardiac murmur, unspecified; I08.3 Combined rheumatic disorders of mitral, aortic and tricuspid valves
CPT/HCPCS: 36415; 70496; 70498; 70551; 71045; 80048; 80061; 82962; 83036; 84443; 84484; 85025; 85610; 85730; 92610; 93005; 93306; 94762; 96372; 96374; 97162; 97166; 97802; 99221; 99285; Q9967; A4216; G0378

== ENCOUNTER → 2024-04-20 | Outpatient (CLI) | payer OTHER, SELFPAY ==
[2024-04-20 15:39] LABS: AST(SGOT) 22 U/L (15-37); Alanine Aminotransfer ALT/SGPT 43 U/L (13-56); Alkaline Phosphatase 73 U/L (45-117); Bilirubin, Direct 0.11 mg/dL (0.00-0.30)
== END | disposition home or self-care (01) ==
PROVIDERS: PCP Nurse Practitioner Family; Referring Provider Psychiatry & Neurology Neurology; Visit Provider Psychiatry & Neurology Neurology
DX: Z86.73 Personal history of transient ischemic attack (TIA), and cerebral infarction without residual deficits (principal)
CPT/HCPCS: 36415; 80076

== ENCOUNTER → 2024-05-04 | Outpatient (CLI) | payer OTHER, SELFPAY ==
--- NOTE | 2024-05-04 12:42 | VDLE_ITS ---
Reason For Study: CVA & PFO. RIGHT LEFT GSV is normal. GSV is normal. CFV is compressible, spontaneous, phasic, CFV is compressible, spontaneous, phasic, competent and demonstrates normal competent, and demonstrates normal augmentation. augmentation. FV is compressible, spontaneous, phasic, FV is compressible, spontaneous, phasic, competent and demonstrates normal competent and demonstrates normal augmentation. augmentation. POP V is compressible, spontaneous, phasic, POP V is compressible, spontaneous, phasic, competent and demonstrates normal competent and demonstrates normal augmentation. augmentation. T/P Trunk is compressible. T/P Trunk is compressible. PTV is compressible. PTV is compressible. RT PerV is compressible. LT PerV is compressible. Procedure This is a venous duplex using B-mode, color flow and spectral Doppler. Exam performed in department. A preliminary report was called and/or faxed to Dr. Sheehan @ [phone] @ 13:20. VL/Venous Duplex US - Brett Extrem Interpretation Summary Deep veins of the lower extremities are bilaterally patent and compressible seg mentally. There is no evidence of deep vein thrombosis on either side. Valvular competence appears in tact within the proximal deep venous systems bilaterally. The great saphenous veins appear bila terally patent and compressible segmentally. Ordering Physician: Jaison Sheehan Referring Physician: Jaison Sheehan Performed By: Genoveva Nice, RDCS, RVT
== END | disposition home or self-care (01) ==
LOC: CVS 12:42
PROVIDERS: PCP Nurse Practitioner Family; Referring Provider Psychiatry & Neurology Neurology; Visit Provider Psychiatry & Neurology Neurology
DX: Q21.12 Patent foramen ovale (principal); Z86.73 Personal history of transient ischemic attack (TIA), and cerebral infarction without residual deficits
CPT/HCPCS: 93970

== ENCOUNTER → 2024-12-04 | Outpatient (CLI) | payer OTHER, SELFPAY ==
[2024-12-05 15:55] LABS: AST(SGOT) 24 U/L (<=31); Alanine Aminotransfer ALT/SGPT 26 U/L (<=34); Albumin, Serum 4.5 g/dL (3.5-5.0); Alkaline Phosphatase 59 U/L (35-104); Bilirubin, Direct 0.12 mg/dL (0.00-0.30); Cholesterol 162 mg/dL (<=200); Globulin 3.2 g/dL (2.2-4.2); High Density Lipoprotein 41 mg/dL; Low Density Lipoprotein Calc. 96 mg/dL; Protein, Total 7.7 g/dL (5.9-8.4); Total Bilirubin 0.27 mg/dL (0.00-1.30); Triglycerides 129 mg/dL; Very Low Density Lipoprotein 26 mg/dL (5-40); cholesterol:hdl ratio screen 3.99
== END | disposition home or self-care (01) ==
LOC: LAB 10:34
PROVIDERS: PCP Nurse Practitioner Family; Referring Provider Nurse Practitioner Gerontology; Visit Provider Nurse Practitioner Gerontology
DX: E78.5 Hyperlipidemia, unspecified (principal)
CPT/HCPCS: 36415; 80061; 80076